=== PATIENT | male | born 1990 | race Caucasian/White ===

== ENCOUNTER 2016-08-31 20:00 | Emergency (ER) | payer SELFPAY ==
[~2016-08-31] VITALS: Ht 182.9 cm; Wt 68.0 kg
--- NOTE | 2016-08-31 20:15 | NUR ---
PT PRESENTED TO THE ER WITH A C/O HEADACHE AND FAINTING X 3 MONTHS. PT IS AA&O X4.
--- NOTE | 2016-08-31 20:28 | NUR ---
PT LEFT FOR CT VIA GURNEY.
--- NOTE | 2016-08-31 20:29 | NUR ---
EKG DONE AT THE BEDSIDE.
[2016-08-31 20:30] LABS: BASOPHILS % (AUTO) 0.4 % (0.0-2.0); EOSINOPHILS # (AUTO) 0.1 /CMM (0.0-0.7); EOSINOPHILS % (AUTO) 1.9 % (0.0-6.0); HEMATOCRIT 43 % (39-51); HEMOGLOBIN 14.4 g/dL (13.5-17.5); LYMPHOCYTES # (AUTO) 2.2 /CMM (0.8-4.8); MEAN CORPUSCULAR HEMOGLOBIN 31 PG (26.0-33.0); MEAN CORPUSCULAR HGB CONC 34 g/dl (31.0-36.0); MEAN CORPUSCULAR VOLUME 90 fL (80-96); MONOCYTES # (AUTO) 0.4 /CMM (0.1-1.30); MONOCYTES % (AUTO) 7.7 % (2.0-12.0); NEUTROPHILS # (AUTO) 2.4 /CMM (1.8-8.9); PLATELET COUNT (AUTO) 162 /CMM (150-450); RDW COEFFICIENT OF VARIATION 11.5 (11.5-15.0); RED BLOOD CELL COUNT(AUTO) 4.73 MIL/uL (4.5-6.0); WHITE BLOOD COUNT (AUTO) 5.1 K/uL (4.3-11.0)
[2016-08-31 20:40] LABS: CREATININE 0.9 mg/dL (0.6-1.3); POTASSIUM 3.8 mmol/L (3.5-5.1)
[2016-08-31 20:44] LABS: INR 0.95 (0.87-1.13); PROTHROMBIN TIME 9.9 SECS (9.5-12.7)
--- NOTE | 2016-08-31 21:32 | NUR ---
Patient discharged to home in stable condition. Written and verbal after care instructions given. Patient verbalizes understanding of instruction AND RX. PT REC'D AN EXCUSE/NOTE TO ALLOW PT TO RETURN TO [facility] AFTER CERFEW. PT AMBULATED OUT WITH A STEADY GAIT. VSS.
[2016-08-31 21:34] VITALS: BP 121/79
== END 2016-08-31 21:34 | disposition home or self-care (01) ==
LOC: ER 20:00
DX: G44.209 Tension-type headache, unspecified, not intractable (principal); F17.200 Nicotine dependence, unspecified, uncomplicated; R79.1 Abnormal coagulation profile; Z59.0 Homelessness
CPT/HCPCS: 36415; 70450; 71010; 80048; 85025; 85730; 93005; 99285; A4606; Z7610

== ENCOUNTER 2017-08-20 08:24 | Emergency (ER) | payer MEDICAID ==
[~2017-08-20] VITALS: Ht 182.9 cm; Wt 72.6 kg
[2017-08-20 08:33] VITALS: BP 106/68
[2017-08-20] MEDS ORDERED: KETOROLAC TROMETHAMINE INJ 30 MG/ML VIAL ONE (09:10)
--- NOTE | 2017-08-20 09:17 | NUR ---
PT REFUSED BLOOD DRAW AND IV INSERTION, AWARE
[2017-08-20] MEDS ORDERED: IV NS 0.9% 1,000 ML BAG IV ONE (09:30)
[2017-08-20] MEDS ORDERED: KETOROLAC TROMETHAMINE INJ 30 MG/ML VIAL IV ONE (09:30)
== END 2017-08-20 11:05 | disposition home or self-care (01) ==
LOC: ER 08:32
DX: R51 Headache (principal); F10.10 Alcohol abuse, uncomplicated; F17.200 Nicotine dependence, unspecified, uncomplicated; Z59.0 Homelessness
CPT/HCPCS: A4606; J1885; J7030; Z7610

== ENCOUNTER 2017-10-06 13:36 | Emergency (ER) | payer MEDICAID ==
[~2017-10-06] VITALS: Ht 182.9 cm; Wt 68.0 kg
[2017-10-06] MEDS ORDERED: HYDROCODONE/APAP 5/325MG 1 EACH TABLET PO ONE (14:00)
--- NOTE | 2017-10-06 14:00 | NUR ---
AAOX3, C/O LEFT TESTICULAR PAIN X 2 DAYS, -DISCHARGE. RR IS EVEN AND UNLABORED WITH NAD NOTED. SKIN IS WARM AND DRY. AWAITING MD FOR EVAL.
[2017-10-06] MEDS ORDERED: HYDROCODONE/APAP 5/325MG 1 EACH TABLET ONE (14:13)
[2017-10-06 14:39] LABS: APPEARANCE,URINE Clear (CLEAR); BILIRUBIN,URINE Negative (NEGATIVE); BLOOD, URINE Negative Ery/uL (NEGATIVE); COLOR,URINE Yellow (YELLOW); KETONES,URINE Negative (NEGATIVE); LEUKOCYTE ESTERASE ,URINE Negative (NEGATIVE); NITRITE, URINE Negative (NEGATIVE); PROTEIN,URINE Negative (NEGATIVE); UGLUCOSE Negative (NEGATIVE); UROBILINOGEN,URINE 0.2 EU/dL (0.2)
[2017-10-06] MEDS ORDERED: AZITHROMYCIN 250 MG TABLET PO ONE (16:30)
[2017-10-06] MEDS ORDERED: CEFTRIAXONE 1 G VIAL IM ONE (16:30)
[2017-10-06] MEDS ORDERED: LIDOCAINE /MPF 1% VIAL 5 ML VIAL ONE (16:32)
[2017-10-06] MEDS ORDERED: CEFTRIAXONE 500 MG VIAL ONE (16:32)
[2017-10-06] MEDS ORDERED: AZITHROMYCIN 250 MG TABLET ONE (16:33)
[2017-10-06 16:41] VITALS: BP 120/72
--- NOTE | 2017-10-06 16:41 | NUR ---
Patient discharged to home in stable condition. Written and verbal after care instructions given. Patient verbalizes understanding of instruction.
== END 2017-10-06 16:41 | disposition home or self-care (01) ==
LOC: ER 13:42
DX: N45.1 Epididymitis (principal); F10.10 Alcohol abuse, uncomplicated; F17.200 Nicotine dependence, unspecified, uncomplicated; Z59.0 Homelessness; Y90.9 Presence of alcohol in blood, level not specified
CPT/HCPCS: 76870-TC; 81000-TC; A4606; J0696; J3490; Z7610

== ENCOUNTER 2018-03-05 20:08 | Emergency (ER) | payer MEDICAID ==
--- NOTE | 2018-03-05 21:20 | NUR ---
CALLED PT, NOT IN WAITING ROOM
--- NOTE | 2018-03-05 21:38 | NUR ---
CALLED PT NAME X3 IN WR. NO ONE RESPONDED. PER ADMITTING PT LEFT.
== END 2018-03-05 21:38 | disposition left against medical advice (07) ==
LOC: ER 20:18
DX: Z53.21 Procedure and treatment not carried out due to patient leaving prior to being seen by health care provider (principal)

== ENCOUNTER 2018-03-05 22:30 | Inpatient (IN) | payer MEDICAID, OTHER ==
[~2018-03-05] VITALS: Ht 177.8 cm; Wt 62.1 kg
--- NOTE | 2018-03-05 22:34 | NUR ---
[id number] FOUND IN THE STREET FOR BIZARRE BEHAVIOR; RIGHT THUMB SWOLLEN; POSSIBLY INFECTED, RIGHT HAND PAIN. PT IS AOX2, VSS, RESPIRATIONS EVEN AND UNLABORED. THOUGHT PROCESS IS ALTERED. IN CUSTODY. SKIN WARM TO TOUCH, DRY, INTACT. NO ACUTE SIGNS OF DISTRESS NOTED. READY FOR EVAL.
[2018-03-05] MEDS ORDERED: OLANZAPINE 10 MG VIAL IM ONE ×2 (22:44→23:00)
[2018-03-05] MEDS ORDERED: VANCOMYCIN 1 GM VIAL ONE (22:46)
[2018-03-05] MEDS ORDERED: VANCOMYCIN 1 GM in IV D5W 250 ML IV ONE (23:00)
[2018-03-05 23:04] LABS: BASOPHILS # (AUTO) 0.1 /CMM (0.0-0.2); BASOPHILS % (AUTO) 0.7 % (0.0-2.0); EOSINOPHILS % (AUTO) 0.9 % (0.0-6.0); HEMATOCRIT 41 % (39-51); HEMOGLOBIN 14.1 g/dL (13.5-17.5); LYMPHOCYTES # (AUTO) 2.2 /CMM (0.8-4.8); LYMPHOCYTES % (AUTO) 25.9 % (20.0-44.0); MEAN CORPUSCULAR HGB CONC 34 g/dl (31.0-36.0); MEAN CORPUSCULAR VOLUME 90 fL (80-96); MONOCYTES # (AUTO) 0.6 /CMM (0.1-1.30); MONOCYTES % (AUTO) 6.6 % (2.0-12.0); NEUTROPHILS # (AUTO) 5.7 /CMM (1.8-8.9); NEUTROPHILS % (AUTO) 65.9 % (43.0-81.0); PLATELET COUNT (AUTO) 264 /CMM (150-450); RED BLOOD CELL COUNT(AUTO) 4.62 MIL/uL (4.5-6.0); WHITE BLOOD COUNT (AUTO) 8.7 K/uL (4.3-11.0)
[2018-03-05 23:11] LABS: CALCIUM, SERUM 9.2 mg/dL (8.5-10.1); CARBON DIOXIDE 28 mmol/L (21-32); CHLORIDE 102 mmol/L (98-107); CREATININE 1.1 mg/dL (0.6-1.3); GLUCOSE 173 mg/dL (74-106); POTASSIUM 3.7 mmol/L (3.5-5.1); SODIUM SERUM 141 mmol/L (136-145); UREA NITROGEN, BLOOD 14 mg/dL (7-18)
--- NOTE | 2018-03-05 23:15 | NUR ---
Patient is resting comfortably in bed with eyes closed. Easily aroused. VSS
[2018-03-05 23:18] LABS: ACETAMINOPHEN 0 ug/ml (10-30); ALANINE AMINOTRANSFERASE 39 U/L (12-78); ALBUMIN 3.4 g/dL (3.4-5.0); ALCOHOL, BLOOD < 3 mg/dL (0-0); ALKALINE PHOSPHATASE 121 U/L (46-116); ASPARTATE AMINOTRANSFERASE 24 U/L (15-37); BILIRUBIN,DIRECT 0.2 mg/dL (0.0-0.2); SALICYLATE 2.6 mg/dL (2.8-20.0)
[2018-03-06] MEDS ORDERED: ACETAMINOPHEN 325 MG TABLET PO PRN
[2018-03-06] MEDS ORDERED: ONDANSETRON HCL/PF 4 MG/2 ML VIAL IVP PRN
[2018-03-06] MEDS ORDERED: MAG HYDROX/AL HYDROX/SIMETH 30 ML UDC PO PRN
[2018-03-06] MEDS ORDERED: Z GUARD REMEDY 2 OZ OINT TP PRN
[2018-03-06] MEDS ORDERED: MAGNESIUM HYDROXIDE 30 ML UDC PO PRN
--- NOTE | 2018-03-06 00:10 | NUR ---
IV ABX COMPLETE. TOLERATED WELL.
--- NOTE | 2018-03-06 00:11 | NUR ---
PER AIR MOTOR REPAIRER, PT BEING RELEASED. REQUESTING COURTESY CALL TO BRETT TEJADAKanshu PLAY READER [phone].
--- NOTE | 2018-03-06 00:15 | NUR ---
REPORT GIVEN TO [facility] NURSE FOR BED 120
--- NOTE | 2018-03-06 00:45 | NUR ---
PT TRANSFERRED TO [facility]
[2018-03-06 00:53] LABS: APPEARANCE,URINE CLEAR (CLEAR); BILIRUBIN,URINE NEGATIVE (NEGATIVE); BLOOD, URINE NEGATIVE Ery/uL (NEGATIVE); COLOR,URINE YELLOW (YELLOW); KETONES,URINE NEGATIVE (NEGATIVE); LEUKOCYTE ESTERASE ,URINE NEGATIVE (NEGATIVE); NITRITE, URINE NEGATIVE (NEGATIVE); PROTEIN,URINE NEGATIVE (NEGATIVE); UGLUCOSE NEGATIVE (NEGATIVE); UROBILINOGEN,URINE 0.2 EU/dL (0.2)
[2018-03-06 01:00] VITALS: BP 128/95
--- NOTE | 2018-03-06 01:00 | NUR ---
Rn notes Patient received from ed vis stretcher. Pt was very drowsy and confused. Pt a&ox2. Pt oriented to room. vss. Iv fluids started in R ac as ordered. Wound on R finger noted, pic taken and wound care consult ordered. All needs anticipated and met. All safety precautions taken. Admission completed. Will cont to monitor.
[2018-03-06] MEDS: IV NS 0.9% 1,000 ML IV PRN ×2 (03:52→11:29)
[2018-03-06 04:00] VITALS: BP 127/84
--- NOTE | 2018-03-06 07:00 | NUR ---
PAGINATOR NOTES RECEIVED PATIENT SLEEPING IN BED. ABLE TO AROUSE WITH VOICE AND TOUCH. ON ROOM AIR NO SIGNS OR SYMPTOMS OF RESPIRATORY DISTRESS OR ACUTE PAIN AT THIS TIME . IV TO (R) FA SALINE LOCK. SAFETY PRECAUTIONS IN PLACE CALL LIGHT WITHIN REACH WILL CONT TO MONITOR
--- NOTE | 2018-03-06 07:39 | NUR ---
Rn Notes NO CHANGE IN PTS CONDITION OVER NIGHT. WILL ENDORSE TO AM RN.
[2018-03-06] MEDS ORDERED: FEE PK DOSING 1 MIN EA MC ONE (07:51)
[2018-03-06 08:00] VITALS: BP 136/83
[2018-03-06] MEDS: PANTOPRAZOLE 40 MG TABLET.DR PO SCH (08:31)
[2018-03-06] MEDS: VANCOMYCIN 0.75 GM in IV D5W 250 ML IV SCH ×3 (09:07→23:12)
[2018-03-06] MEDS ORDERED: LIDOCAINE 2%-EPI 1:100,000 30 ML VIAL TP ONE (15:30)
[2018-03-06] MEDS ORDERED: SILVER NITRATE APPLICATOR 1 EA BOX TP ONE (15:30)
[2018-03-06 15:34] LABS: BASOPHILS % (AUTO) 0.7 % (0.0-2.0); EOSINOPHILS % (AUTO) 2.2 % (0.0-6.0); HEMATOCRIT 43 % (39-51); HEMOGLOBIN 14.5 g/dL (13.5-17.5); LYMPHOCYTES # (AUTO) 1.9 /CMM (0.8-4.8); LYMPHOCYTES % (AUTO) 35.2 % (20.0-44.0); MEAN CORPUSCULAR HGB CONC 34 g/dl (31.0-36.0); MEAN CORPUSCULAR VOLUME 90 fL (80-96); MONOCYTES # (AUTO) 0.4 /CMM (0.1-1.30); MONOCYTES % (AUTO) 7.7 % (2.0-12.0); NEUTROPHILS % (AUTO) 54.2 % (43.0-81.0); PLATELET COUNT (AUTO) 269 /CMM (150-450); RED BLOOD CELL COUNT(AUTO) 4.76 MIL/uL (4.5-6.0); WHITE BLOOD COUNT (AUTO) 5.5 K/uL (4.3-11.0)
--- NOTE | 2018-03-06 15:46 | NUR ---
CROW WATKINS SURGE NOTES OBTAINED CONSENT FOR RIGHT THUMB DEBRIDEMENT AND WASHOUT
[2018-03-06 15:56] LABS: CALCIUM, SERUM 8.9 mg/dL (8.5-10.1); CREATININE 0.8 mg/dL (0.6-1.3); MAGNESIUM 2.2 mg/dL (1.8-2.4); POTASSIUM 4.1 mmol/L (3.5-5.1); THYROID STIMULATING HORMONE 0.241 uIU/mL (0.358-3.74)
[2018-03-06 16:00] VITALS: BP 126/77
[2018-03-06 16:10] LABS: PHOSPHORUS 3.7 mg/dL (2.5-4.9)
[2018-03-06] MEDS ORDERED: MORPHINE SULFATE INJ 4 MG/ML DISP.SYRIN IV PRN (17:00)
[2018-03-06] MEDS ORDERED: MORPHINE SULFATE INJ 2 MG/ML DISP.SYRIN IV PRN (17:00)
--- NOTE | 2018-03-06 17:15 | NUR ---
RN MS NOTES WOUND DEBRIDEMENT DONE BY DR BONILLA AND JAIR DAVID. UNABLE TO BE AT BEDSIDE AND TAKE POST DEBRIDEMENT PHOTOS. WILL ENDORSE TO NOC TO HAVE PHOTOS TAKE @ FIRST WOUND CHANGE
--- NOTE | 2018-03-06 19:10 | NUR ---
PRIMARY CARE PROVIDER CLOSING NOTES REPORT GIVEN TO NOC RN PATIENT SLEEPING IN BED. ABLE TO AROUSE WITH VOICE AND TOUCH. ON ROOM AIR NO SIGNS OR SYMPTOMS OF RESPIRATORY DISTRESS OR ACUTE PAIN AT THIS TIME . IV TO (R) FA SALINE LOCK.IVF TO LFA #20 GAUGE NS @ 75 ML/HR APPETITE GOOD EATING 100%. WOUND DEBRIDEMENT TO R THUMB PATIENT TOLERATED WELL. PATIENT IS IN CUSTODY WITH [facility] NO OFFICERS AT BEDSIDE AT THIS TIME. IF AMA OR D/C PATIENT TO RELEASED TO [facility]. SAFETY PRECAUTIONS IN PLACE CALL LIGHT WITHIN REACH WILL GREY
[2018-03-06 20:00] VITALS: BP 138/81
--- NOTE | 2018-03-06 20:00 | NUR ---
RN INITIAL NOTES RECEIVED PATIENT IN BED, VERY LETHARGIC . ABLE TO AROUSE WITH VOICE AND TOUCH. ON ROOM AIR NO SIGNS OR SYMPTOMS OF RESPIRATORY DISTRESS OR ACUTE PAIN AT THIS TIME . IV TO (R) FA SALINE LOCK AND (L) FA WITH FLUID INFUSING ORDERED. SAFETY PRECAUTIONS IN PLACE, CALL LIGHT WITHIN REACH. WILL CONT TO MONITOR.
[2018-03-07 04:00] VITALS: BP 143/79
--- NOTE | 2018-03-07 06:45 | NUR ---
RN CLOSING NOTES RECEIVED PATIENT SLEEPING IN BED. ABLE TO AROUSE WITH VOICE AND TOUCH. ON ROOM AIR NO SIGNS OR SYMPTOMS OF RESPIRATORY DISTRESS OR ACUTE PAIN AT THIS TIME . IV TO (L) FA WITH FLUIDS INFUSING. SAFETY PRECAUTIONS IN PLACE CALL LIGHT WITHIN REACH WILL ENDORSE TO AM RN.
[2018-03-07] MEDS: IV NS 0.9% 1,000 ML IV PRN ×2 (06:57→23:34)
--- NOTE | 2018-03-07 07:00 | NUR ---
RN MS OPENING NOTES RECEIVED PATIENT SLEEPING IN BED. ABLE TO AROUSE WITH VOICE AND TOUCH. ON ROOM AIR NO SIGNS OR SYMPTOMS OF RESPIRATORY DISTRESS OR ACUTE PAIN AT THIS TIME .IVF TO LFA #20 GAUGE NS @ 75 ML/HR WOUND DEBRIDEMENT TO R THUMB DRESSING REINFORCED BY OFFICE ADMINISTRATION. PATIENT IS IN CUSTODY WITH [facility] NO OFFICERS AT BEDSIDE AT THIS TIME. IF AMA OR D/C PATIENT TO RELEASED TO [facility]. SAFETY PRECAUTIONS IN PLACE CALL LIGHT WITHIN REACH WILL CONT TO MONITOR
[2018-03-07 07:36] LABS: CALCIUM, SERUM 8.8 mg/dL (8.5-10.1); CREATININE 0.7 mg/dL (0.6-1.3); POTASSIUM 4.1 mmol/L (3.5-5.1)
[2018-03-07] MEDS: PANTOPRAZOLE 40 MG TABLET.DR PO SCH (07:57)
[2018-03-07] MEDS: VANCOMYCIN 0.75 GM in IV D5W 250 ML IV SCH ×3 (07:58→23:34)
--- NOTE | 2018-03-07 08:22 | NUR ---
WOUND CARE CONSULT WOUND CARE RECEIVED CONSULT FOR R THUMB CELLULITIS. WOUND CARE WILL DEFER CONSULT AND TREATMENT PLANS TO PLASTIC SURGICAL TEAM WHO ARE CURRENTLY FOLLOWING PATIENT. PATIENT WITH TERRELL A 22. WILL SEE PRN.
[2018-03-07 08:50] VITALS: BP 139/89
--- NOTE | 2018-03-07 11:37 | NUR ---
RN MS NOTES PATIENT WOUND TREATMENT DONE WITH MINIMAL DRAINAGE. POST CARE PATIENT STARTED TO HALLUCINATE THAT HE WAS BEING ABDUCTED AND HE WAS NOT SAFE COMING IN AND OUT REALITY AND DELUSIONS. WANTS TO LEAVE AMA TO GET HIS BELONGINGS BEFORE THE ALIENS TAKE THEM. PHONE MESSAGE LEFT FOR DR DOBBINS FOR A PSYCH EVALUATION. PATIENT CANNOT LEAVE AMA HE IS UNDER CUSTODY FAXED FACE SHEET TO [employer]
[2018-03-07] MEDS: HYDROCODONE/APAP 10/325MG 1 EA TABLET PO PRN (15:33)
[2018-03-07 16:00] VITALS: BP 130/85
--- NOTE | 2018-03-07 19:13 | NUR ---
[employer] CLOSING NOTES REPORT GIVEN TO NOC RN PATIENT SLEEPING IN BED. ABLE TO AROUSE WITH VOICE AND TOUCH. ON ROOM AIR NO SIGNS OR SYMPTOMS OF RESPIRATORY DISTRESS OR ACUTE PAIN AT THIS TIME . IV TO (R) FA SALINE LOCK.IVF TO LFA #20 GAUGE NS @ 75 ML/HR APPETITE GOOD EATING 100%. WOUND TREATMENT DONE TO RIGHT THUMB.POSITIVE MRSA NARES MOVED TO ROOM 106 ON ISOLATION STARTING TO HAVE PARANOID HALLUCINATIONS PSYCH EVAL REQUESTED.. PATIENT IS IN CUSTODY WITH [facility] NO OFFICERS AT BEDSIDE AT THIS TIME. IF AMA OR D/C PATIENT TO RELEASED TO [facility]. SAFETY PRECAUTIONS IN PLACE CALL LIGHT WITHIN REACH WILL GREY
[2018-03-07 20:00] VITALS: BP 137/60
--- NOTE | 2018-03-07 20:23 | NUR ---
NURSING EDUCATOR NOTES RECEIVED REPORT FROM JOANA MARIA. PATIENT A/A/O X2-3, ABLE TO MAKE NEEDS KNOWN. BREATHING EVEN & UNLABORED, TOLERATING ROOM AIR. DENIES ANY SOB OR DIFFICULTY BREATHING. RADIAL PULSES PRESENT. LEFT FOREARM IV #20 INTACT & PATENT W/ DRESSING CDI & IVF NS INFUSING WELL @ 75 ML/HR. RIGHT THUMB WOUND DRESSING CLEAN & DRY. DENIES ANY PAIN OR DISCOMFORT @ THIS TIME. SAFETY MEASURES IN PLACE W/ SIDE RAILS UP & BED LOCKED IN LOWEST POSITION. SITTER @ BEDSIDE. WILL CONTINUE TO MONITOR.
[2018-03-07] MEDS: MUPIROCIN OINT 2% 22 GM TUBE SCH (20:36)
[2018-03-08 04:00] VITALS: BP 134/90
[2018-03-08 06:58] LABS: CALCIUM, SERUM 9.1 mg/dL (8.5-10.1); CREATININE 0.7 mg/dL (0.6-1.3); POTASSIUM 4.3 mmol/L (3.5-5.1)
--- NOTE | 2018-03-08 07:00 | NUR ---
RN MS OPENING NOTES RECEIVED PATIENT SLEEPING IN BED.SITTER AT BEDSIDE ABLE TO AROUSE WITH VOICE AND TOUCH. ON ROOM AIR NO SIGNS OR SYMPTOMS OF RESPIRATORY DISTRESS OR ACUTE PAIN AT THIS TIME .IVF TO LFA #20 GAUGE NS @ 75 ML/HR RIGHT THUMB DRESSING CHANGED BY BUN PANNER. PATIENT IS IN CUSTODY WITH [employer] NO OFFICERS AT BEDSIDE AT THIS TIME. IF AMA OR D/C PATIENT TO RELEASED TO [employer]. SAFETY PRECAUTIONS IN PLACE CALL LIGHT WITHIN REACH WILL CONT TO MONITOR
[2018-03-08 08:00] VITALS: BP 137/100
[2018-03-08] MEDS: PANTOPRAZOLE 40 MG TABLET.DR PO SCH (08:12)
[2018-03-08] MEDS: VANCOMYCIN 0.75 GM in IV D5W 250 ML IV SCH ×2 (08:12→16:18)
[2018-03-08] MEDS: MUPIROCIN OINT 2% 22 GM TUBE SCH ×2 (08:13→22:16)
[2018-03-08] MEDS: HYDROCODONE/APAP 10/325MG 1 EA TABLET PO PRN (12:23)
--- NOTE | 2018-03-08 13:19 | NUR ---
RN MS NOTES PATIENT ATTEMPTED TO PULL OUT IV AND LEAVE HAVING PARANOIA AND SCREAMING. SECURITY CALLED TO ASSIST AT BEDSIDE. PSYCH CONSULT DONE AT BEDSIDE NEW ORDERS OBTAINED. LAW ENFORCEMENT CALLED DIRECTED IN LABOR UTILIZATION SUPERINTENDENT NOTES. EXPLAINED THAT PATIENT IS NOT IN ACTUAL CUSTODY UNTIL HE LEAVES AND CONTAINED . [facility]CHAR[facility] PL[facility] WEEK THERAPY FOR CELLULITIS OF RIGHT THUMB
[2018-03-08] MEDS ORDERED: LORAZEPAM 1 MG TABLET PO PRN (13:30)
--- NOTE | 2018-03-08 13:43 | NUR ---
ID NOTIFIED REGARDING SITUATION ,AWAITS RESPONSE.
[2018-03-08] MEDS: ARIPIPRAZOLE 5 MG TABLET PO SCH ×2 (13:47→17:12)
--- NOTE | 2018-03-08 13:55 | NUR ---
DISCUSSED WITH DR. DOBBINS PT.TRYING PULL IV AND EATING 100 %,PER MD BRYON Samayoa IV.
[2018-03-08 16:00] VITALS: BP_SYST 127; BP_DIAS 81; BP_DIAS 82
--- NOTE | 2018-03-08 16:39 | NUR ---
RN MS NOTES CALL FROM [facility] WOUND POSITIVE FOR MRSA/STAFF. PATIENT ALREADY ON ISOLATION FOR MRSA NARES
[2018-03-08] MEDS ORDERED: CLINDAMYCIN IV RTU IN D5W 900 MG/50 ML PIGGYBACK IV SCH (18:00)
[2018-03-08] MEDS: CLINDAMYCIN 900 MG in IV D5W 50 ML IV SCH (18:49)
--- NOTE | 2018-03-08 19:02 | NUR ---
CURTAIN STITCHER CLOSING NOTES REPORT GIVEN TO NOC RN PATIENT SLEEPING IN BED. ABLE TO AROUSE WITH VOICE AND TOUCH. ON ROOM AIR NO SIGNS OR SYMPTOMS OF RESPIRATORY DISTRESS OR ACUTE PAIN AT THIS TIME REINSERTED IV TO LFA #20 GAUGE APPETITE GOOD EATING 100%. WOUND TREATMENT DONE TO RIGHT THUMB.POSITIVE MRSA NARES AND MRSA /STAPH TO WOUND ON ISOLATION STARTING TO HAVE PARANOID HALLUCINATIONS PSYCH EVAL DONE OBTAINED NEW ORDERS FOR AMBILIFY PATIENT IS IN CUSTODY WITH [facility] NO OFFICERS AT BEDSIDE AT THIS TIME. IF AMA OR D/C PATIENT TO RELEASED TO [facility]. SAFETY PRECAUTIONS IN PLACE BED INLOW POSITION CALL LIGHT WITHIN REACH GREY
--- NOTE | 2018-03-08 19:10 | NUR ---
MS/RN OPENING NOTES PT RECEIVED WITH EYES CLOSED. OPENS EYES TO NAME. SITTER AT BEDSIDE. ON ROOM AIR, BREATHING EVEN AND UNLABORED. NO S/S OF SOB, PAIN OR ACUTE RESP. DISTRESS AT THIS TIME. IV TO LFA PATENT AND INTACT. BED IN LOW/LOCKED POSITION WITH HOB ELEVATED AND BILATERAL UPPER SIDE RAILS IN PLACE. WILL CONTINUE TO MONITOR
[2018-03-08 20:00] VITALS: BP 127/80
[2018-03-09] MEDS: CLINDAMYCIN 900 MG in IV D5W 50 ML IV SCH ×3 (01:49→17:57)
[2018-03-09 04:00] VITALS: BP 121/74
[2018-03-09 06:37] LABS: CALCIUM, SERUM 9.1 mg/dL (8.5-10.1); CREATININE 0.8 mg/dL (0.6-1.3); POTASSIUM 4.4 mmol/L (3.5-5.1)
--- NOTE | 2018-03-09 07:00 | NUR ---
RN MS OPENING NOTES RECEIVED PATIENT SLEEPING IN BED.SITTER AT BEDSIDE ABLE TO AROUSE WITH VOICE AND TOUCH. ON ROOM AIR NO SIGNS OR SYMPTOMS OF RESPIRATORY DISTRESS OR ACUTE PAIN AT THIS TIME .IV SALINE LOCK LFA #20 GAUGE RIGHT THUMB DRESSING CHANGED BY RELIEF DRILLER. PATIENT IS IN CUSTODY WITH [facility] NO OFFICERS AT BEDSIDE AT THIS TIME. IF AMA OR D/C PATIENT TO RELEASED TO [facility]. SAFETY PRECAUTIONS IN PLACE CALL LIGHT WITHIN REACH WILL CONT TO MONITOR
--- NOTE | 2018-03-09 07:24 | NUR ---
MS/RN CLOSING NOTES PT AWAKE, EATING BREAKFAST. ON ROOM AIR, BREATHING EVEN AND UNLABORED. NO S/S OF PAIN OR SOB AT THIS TIME. IN NO ACUTE DISTRESS. IV TO LFA PATENT AND INTACT. SITTER AT BEDSIDE. NO SIGNIFICANT CHANGES OVERNIGHT. ALL NEEDS MET. SLEPT WELL DURING SHIFT. BED REMAINS IN LOW/LOCKED POSITION WITH CALL LIGHT IN REACH AND BILATERAL UPPER SIDE RAILS IN PLACE. ENDORSED TO DAY SHIFT RN GREY.
[2018-03-09] MEDS: ARIPIPRAZOLE 5 MG TABLET PO SCH ×2 (08:02→17:06)
[2018-03-09] MEDS: PANTOPRAZOLE 40 MG TABLET.DR PO SCH (08:02)
[2018-03-09] MEDS: MUPIROCIN OINT 2% 22 GM TUBE SCH ×2 (08:04→21:09)
[2018-03-09 10:00] VITALS: BP 131/81
[2018-03-09] MEDS: HYDROCODONE/APAP 10/325MG 1 EA TABLET PO PRN (14:58)
--- NOTE | 2018-03-09 15:11 | NUR ---
RN MS NOTES PATIENT SIGNED INFORMED CONSENT FOR SMOKING. PATIENT ALSO AWARE HE IS ONLY TO GO OUTSIDE IF ACCOMPANIED BY FAMILY AND SECURITY.
--- NOTE | 2018-03-09 15:43 | NUR ---
RN MS NOTES PATIENT LEFT UBIT WITH SISTER AND SITTER MARITZA TO GET FRESH AIR AND SMOKE
[2018-03-09 16:00] VITALS: BP 113/77
[2018-03-09 20:00] VITALS: BP 127/76
[2018-03-09 22:00] VITALS: BP 127/76
[2018-03-10] MEDS: CLINDAMYCIN 900 MG in IV D5W 50 ML IV SCH ×3 (01:13→17:26)
[2018-03-10 04:00] VITALS: BP 129/88
[2018-03-10 06:40] LABS: CALCIUM, SERUM 8.9 mg/dL (8.5-10.1); CREATININE 0.8 mg/dL (0.6-1.3); POTASSIUM 4.2 mmol/L (3.5-5.1)
--- NOTE | 2018-03-10 07:00 | NUR ---
MS RN OPENING NOTES RECEIVED PT IN BED, ASLEEP BUT AROUSABLE. SITTER AT BEDSIDE. PT ON ROOM AIR. NO RESP DISTRESS NOTED. RIGHT ARM ELEVATED. LFA IV NO S/SX INFECTION. PER PM NURSE, PT REFUSED WOUND TX LAST NIGHT. PT IS CALM AND COOPERATIVE AT THIS TIME. BED IN LOCKED/LOWEST POSITION. CALL LIGHT IN REACH. WILL CONT TO MONITOR.
[2018-03-10] MEDS: PANTOPRAZOLE 40 MG TABLET.DR PO SCH (08:18)
[2018-03-10] MEDS: HYDROCODONE/APAP 10/325MG 1 EA TABLET PO PRN (08:19)
[2018-03-10] MEDS: ARIPIPRAZOLE 5 MG TABLET PO SCH ×3 (08:19→17:25)
[2018-03-10] MEDS: MUPIROCIN OINT 2% 22 GM TUBE SCH ×2 (08:21→21:08)
--- NOTE | 2018-03-10 08:25 | NUR ---
MS RN NOTES PT REFUSED HALF DOSE OF ABILIFY. STATES:"ITS MAKING ME SWEATY; I THINK ITS TOO STRONG."
[2018-03-10 10:00] VITALS: BP 132/70
--- NOTE | 2018-03-10 12:00 | NUR ---
MS RN NOTES DRESSING CHANGE DONE BY DR BONILLA. PICS WERE NOT TAKEN.
--- NOTE | 2018-03-10 15:18 | NUR ---
MS RN NOTES PT'S SISTER, SECURITY AND SITTER ACCOMPANIED PT TO SMOKE.
[2018-03-10 16:00] VITALS: BP 129/88
--- NOTE | 2018-03-10 18:42 | NUR ---
MS RN NOTES REPORT TO PM NURSE FOR GREY. PT IN BED, SITTER AT BEDSIDE. PT IS NOT IN DISTRESS. CALL LIGHT IN REACH. ALL NEEDS ATTENDED TO.
--- NOTE | 2018-03-10 19:49 | NUR ---
MS RN NOTE: RECEIVED PT ON BED ALERT AND AWAKE WITH NO APPARENT DISTRESS NOTED. DENIES PAIN AND DISCOMFORT AT THIS TIME. SITTER AT BEDSIDE. ON ROOM AIR, BREATHING EVEN AND UNLABORED WITH NORMAL RESPIRATIONS. IV ON LEFT FOREARM #20 INTACT AND PATENT, FLUSHING WELL. KEPT CLEAN, DRY AND COMFORTABLE. SIDE RAILS UP X2. BED LOCKED AND IN LOWEST POSITION. WILL CONTINUE TO MONITOR PT.
[2018-03-10 20:00] VITALS: BP 122/70
[2018-03-10] MEDS: HYDROCODONE/APAP 5/325MG 1 EACH TABLET PO PRN (23:02)
[2018-03-11] MEDS: CLINDAMYCIN 900 MG in IV D5W 50 ML IV SCH ×3 (02:16→17:06)
[2018-03-11 04:00] VITALS: BP 117/77
[2018-03-11 06:28] LABS: CALCIUM, SERUM 9.1 mg/dL (8.5-10.1); CREATININE 0.8 mg/dL (0.6-1.3); POTASSIUM 4.3 mmol/L (3.5-5.1)
--- NOTE | 2018-03-11 06:50 | NUR ---
MS RN NOTE: NO CHANGES NOTED THROUGHOUT THE SHIFT. NO ACUTE DISTRESS NOTED. NO COMPLAINTS OF PAIN OR DISCOMFORT AT THIS TIME. SITTER AT BEDSIDE. IV ON LEFT FOREARM #20 INTACT AND PATENT, FLUSHING WELL. PT REFUSED WOUND TREATMENT, STATED "THEY JUST CHANGED IT IN THE MORNING", CHARGE NURSE MADE AWARE. KEPT CLEAN, DRY AND COMFORTABLE. WILL ENDORSE TO DAY SHIFT RN FOR CONTINUITY OF CARE.
--- NOTE | 2018-03-11 07:51 | NUR ---
RN NOTE: PATIENT RECEIVED ALERT AWAKE ORIENTED. ON ROOM AIR, NO BREATHING DISTRESS NOTED. DENIES PAIN & DISCOMFORT AT THIS TIME. DRESSING DRY & CLEAN ON RIGHT THUMB. SAFETY MEASURES OBSERVED. 1:1 SITTER. ENCOURAGE TO CALL FOR ASSISTANCE. CONTINUE TO MONITOR.
[2018-03-11 08:00] VITALS: BP 119/67
[2018-03-11] MEDS: ARIPIPRAZOLE 5 MG TABLET PO SCH ×4 (08:29→16:57)
[2018-03-11] MEDS: PANTOPRAZOLE 40 MG TABLET.DR PO SCH (08:29)
[2018-03-11] MEDS: HYDROCODONE/APAP 5/325MG 1 EACH TABLET PO PRN (08:30)
[2018-03-11] MEDS: MUPIROCIN OINT 2% 22 GM TUBE SCH ×2 (08:33→20:22)
[2018-03-11 16:00] VITALS: BP 133/75
--- NOTE | 2018-03-11 19:33 | NUR ---
MS RN NOTE: RECEIVED PT ON BED ASLEEP BUT AROUSES EASILY TO TACTILE AND VERBAL STIMULI. NO COMPLAINTS OF PAIN OR DISCOMFORT AT THIS TIME. SITTER AT BEDSIDE. ON ROOM AIR, BREATHING EVEN AND UNLABORED WITH NORMAL RESPIRATIONS. SATURATING WELL. IV ON LEFT FOREARM #20 INTACT AND PATENT, FLUSHING WELL. KEPT CLEAN, DRY AND COMFORTABLE. SIDE RAILS UP X2. BED LOCKED AND IN LOWEST POSITION. WILL CONTINUE TO MONITOR PT.
[2018-03-11 20:00] VITALS: BP 132/72
[2018-03-12] MEDS: CLINDAMYCIN 900 MG in IV D5W 50 ML IV SCH ×3 (01:22→18:00)
[2018-03-12 04:00] VITALS: BP 133/67
--- NOTE | 2018-03-12 04:30 | NUR ---
ms/rn notes RECEIVED TRANSFER OF CARE FROM HITESH MARIA FOR GREY, PATIENT RESTING IN BED, RESPIRATIONS EVEN AND UNLABORED. REQUIRE SITTER FOR SAFETY. ABLE TO MAKE NEEDS KNOWN, COOPERATIVE TO CARE, WILL MONITOR FOR ANY CHANGES.
[2018-03-12 06:32] LABS: CALCIUM, SERUM 9.1 mg/dL (8.5-10.1); CREATININE 0.8 mg/dL (0.6-1.3); POTASSIUM 4.3 mmol/L (3.5-5.1)
--- NOTE | 2018-03-12 06:32 | NUR ---
MS/RN NOTES PATIENT RESTING COMFORTABLY IN BED, RESPIRATIONS EVEN AND UNLABORED, NO GRIMACE OR GUARDING NOTED, CALL LIGHTS WITHIN REACH, BED LOCKED, WILL ENDORSE TO AM RN FOR GREY.
[2018-03-12] MEDS: MUPIROCIN OINT 2% 22 GM TUBE SCH (08:49)
[2018-03-12] MEDS: ARIPIPRAZOLE 5 MG TABLET PO SCH (08:49)
[2018-03-12] MEDS: PANTOPRAZOLE 40 MG TABLET.DR PO SCH (08:49)
--- NOTE | 2018-03-12 10:22 | NUR ---
MS RN OPENING NOTES RECEIVED PT IN BED, ASLEEP BUT AROUSABLE. SITTER AT BEDSIDE. PT ON ROOM AIR. NO RESP DISTRESS NOTED. RIGHT ARM ELEVATED. LFA IV NO S/SX INFECTION. PT IS CALM AND COOPERATIVE AT THIS TIME. BED IN LOCKED/LOWEST POSITION. CALL LIGHT IN REACH. WILL CONT TO MONITOR.
[2018-03-12 12:00] VITALS: BP 131/68
[2018-03-12] MEDS ORDERED: MUPI22OI7 (14:02)
[2018-03-12] MEDS ORDERED: ARIP5TAB10 PO ×2 (14:02)
[2018-03-12] MEDS ORDERED: LORA1TAB PO (14:02)
[2018-03-12] MEDS ORDERED: Hydrocodone/Apap 10/325MG PO (14:02)
[2018-03-12] MEDS ORDERED: Clindamycin IV (14:02)
[2018-03-12] MEDS ORDERED: ACET325T53 PO (14:02)
--- NOTE | 2018-03-12 16:39 | NUR ---
pt refused to take pictures of the right thumb cellulitis.
[2018-03-12 20:00] VITALS: BP 124/79
--- NOTE | 2018-03-12 20:35 | NUR ---
Patient discharged to the care of [employer], discharge instuctions handed to the police, Medication handed to the police. IV access removed.
[2018-03-12] MEDS ORDERED: ARIPIPRAZOLE 5 MG TABLET PO SCH (22:00)
[2018-03-13] MEDS ORDERED: ARIPIPRAZOLE 5 MG TABLET PO SCH (09:00)
== END 2018-03-12 20:51 | DRG 364 ==
LOC: ER 22:31 → MEDSG1 23:17
PROVIDERS: ADMIT Registered Nurse; ATTEND Internal Medicine
PROC: 0KBC0ZZ Excision of Right Hand Muscle, Open Approach (ICD-10-PCS; principal; 2018-03-06)
DX: L03.011 Cellulitis of right finger (principal); F20.9 Schizophrenia, unspecified; L02.511 Cutaneous abscess of right hand; F19.129 Other psychoactive substance abuse with intoxication, unspecified; K21.9 Gastro-esophageal reflux disease without esophagitis; Z59.0 Homelessness; F15.129 Other stimulant abuse with intoxication, unspecified; Z22.322 Carrier or suspected carrier of Methicillin resistant Staphylococcus aureus; F29 Unspecified psychosis not due to a substance or known physiological condition; B95.62 Methicillin resistant Staphylococcus aureus infection as the cause of diseases classified elsewhere; M86.9 Osteomyelitis, unspecified
CPT/HCPCS: 36415; 73130-TC; 80048-TC; 80061-TC; 80076-TC; 80202-TC; 80305; 81000-TC; 83605-TC; 83735-TC; 84100-TC; 84443-TC; 85025-TC; 85730-TC; 87040-TC; 87070-TC; 87081-TC; A4606; A6402; A6407; G0378; G0480; J3370; J3490; J7030; J7060; Z7610

== ENCOUNTER 2018-06-08 20:02 | Emergency (ER) | payer MEDICAID ==
[~2018-06-08] VITALS: Ht 177.8 cm; Wt 70.3 kg
[~2018-06-08 20:02] MED LIST: ACET325T53 PO; ARIP5TAB10 PO; Clindamycin IV; Hydrocodone/Apap 10/325MG PO; LORA1TAB PO; MUPI22OI7
[2018-06-08 21:33] VITALS: BP 133/79
[2018-06-08] MEDS ORDERED: OLANZAPINE 10 MG VIAL IM ONE ×2 (22:00→22:48)
[2018-06-08 22:26] LABS: BASOPHILS % (AUTO) 0.5 % (0.0-2.0); EOSINOPHILS % (AUTO) 2.2 % (0.0-6.0); HEMATOCRIT 43 % (39-51); HEMOGLOBIN 14.6 g/dL (13.5-17.5); LYMPHOCYTES # (AUTO) 2.2 /CMM (0.8-4.8); LYMPHOCYTES % (AUTO) 45.7 % (20.0-44.0); MEAN CORPUSCULAR HGB CONC 34 g/dl (31.0-36.0); MEAN CORPUSCULAR VOLUME 93 fL (80-96); MONOCYTES # (AUTO) 0.5 /CMM (0.1-1.30); MONOCYTES % (AUTO) 9.2 % (2.0-12.0); NEUTROPHILS # (AUTO) 2.1 /CMM (1.8-8.9); NEUTROPHILS % (AUTO) 42.4 % (43.0-81.0); PLATELET COUNT (AUTO) 206 /CMM (150-450); RED BLOOD CELL COUNT(AUTO) 4.61 MIL/uL (4.5-6.0); WHITE BLOOD COUNT (AUTO) 4.9 K/uL (4.3-11.0)
[2018-06-08 22:29] LABS: CALCIUM, SERUM 8.8 mg/dL (8.5-10.1); CARBON DIOXIDE 30 mmol/L (21-32); CHLORIDE 104 mmol/L (98-107); CREATININE 0.9 mg/dL (0.6-1.3); GLUCOSE 88 mg/dL (74-106); POTASSIUM 3.9 mmol/L (3.5-5.1); SODIUM SERUM 141 mmol/L (136-145); UREA NITROGEN, BLOOD 11 mg/dL (7-18)
[2018-06-08 22:35] LABS: ACETAMINOPHEN 1 ug/ml (10-30); ALANINE AMINOTRANSFERASE 26 U/L (12-78); ALBUMIN 3.5 g/dL (3.4-5.0); ALCOHOL, BLOOD < 3 mg/dL (0-0); ALKALINE PHOSPHATASE 103 U/L (46-116); ASPARTATE AMINOTRANSFERASE 19 U/L (15-37); BILIRUBIN,DIRECT 0.1 mg/dL (0.0-0.2); BILIRUBIN,TOTAL 0.6 mg/dL (0.2-1.0); TOTAL PROTEIN, SERUM 6.4 g/dL (6.4-8.2)
[2018-06-08 22:36] LABS: SALICYLATE 2.1 mg/dL (2.8-20.0)
--- NOTE | 2018-06-08 22:57 | NUR ---
Patient discharged to home in stable condition. Written and verbal after care instructions given. Patient verbalizes understanding of instruction. PT WALKED OUT IN CUSTODY WITH POLICE. NO S/S OF ACUTE DISTRESS NOTED. PT OKAY FOR BOOKING PER
== END 2018-06-08 23:01 ==
LOC: ER 20:04
DX: Z02.89 Encounter for other administrative examinations (principal); F17.200 Nicotine dependence, unspecified, uncomplicated; Z59.0 Homelessness; Z79.899 Other long term (current) drug therapy
CPT/HCPCS: 36415; 80048; 80076; 80307; 80329; 85025; 96372; 99283; G0480; J3490